=== PATIENT | female | born 1955 | race Caucasian/White ===

== ENCOUNTER → 2016-11-07 | Outpatient (CLI) | payer BC ==
[~2016-11-07] MED LIST: ASPI325T32 PO; HYDR-906 PO; SUMA50TA11 PO
--- NOTE | 2016-11-07 21:47 | HKNOTE ---
DATE OF SERVICE: The patient comes in for checkup on her right hip. The patient had a hip replacement on the right s nael 3 weeks ago. She is pleased with the results of surgery. She walks without a walking aid. She has no complaints. Note that at surgery, she was found to soft tissues around the hip that suggest ed rheumatoid arthritis. PHYSICAL EXAMINATION: Blood pressure is 100/60, temperature 98.0. The wound looks excellent. MANAGEMENT: The patient is being sent for CBC, sedimentation rate and rheumatoid factor as well as C-reactive protein, and she will be seen again in 3 weeks' time for re-evaluation. Dictated By: MARY ROSA/RNIA Conf#: [id number] DID#: [id number]
== END | disposition home or self-care (01) ==
LOC: HKI 14:38
DX: Z47.1 Aftercare following joint replacement surgery (principal); Z96.641 Presence of right artificial hip joint
CPT/HCPCS: G0463

== ENCOUNTER → 2016-11-28 | Outpatient (CLI) | payer BC ==
--- NOTE | 2016-11-28 15:24 | RADRPT ---
PROCEDURE: XR pelvis/right hip. CLINICAL INDICATION: Hip pain TECHNIQUE: AP pelvis/lateral right hip view performed. COMPARISON: 08/23/2016 FINDINGS: There is a right total hip replacement. There is no evidence of loosening of the prosthesis. There is moderate left hip osteoarthrosis. This is associated with joint space narrowing, subchondra l sclerosis, subchondral cyst formation and osteophytosis. There is normal osseous mineralization. No fractures or osseous lesions are identified. The soft tissues are unremarkable. IMPRESSION: Right total hip replacement. Moderate left hip osteoarthrosis. RPTAT: HGDB .Aditya Alberto MD, Date Time Electronically viewed and signed by .Aditya Alberto MD, on 11/28/2016 15:24 .B/
--- NOTE | 2016-11-29 00:14 | HKNOTE ---
DATE OF SERVICE: 11/28/2016 SUBJECTIVE: A 61-year-old female presents today for 6 weeks postoperative visit after right total hip replacement via anterior route on 10/17/2016. The patient discontinued cane for assisted ambulation 4 to 5 days postop. Since discharge from hospital, patient has no pain complaints. Important to note, that patient has discontinued/stopped deep vein thrombosis prophylaxis with aspirin 325 mg 2 weeks postoperative and she also states that she stopped Celebrex antinflammatory medications 2 week postop. She denies any episodes of chest pain , shortness of breath or calf pain. The patient does state that she has discomfort from the calf on the right side that radiates from the knee after she has been performing therapy at home, but states that calf pain is not constant. At rest she denies any calf pain. Denies any swelling to the right lower extremity. The patient does have complaints of mild numbness around incision site and at times, it can radiate down to the anterior mid quadriceps/ thigh region. Denies any falls. The patient is very pleased status post surgery as she states that she has had significant improvement. She does have slight limp. PHYSICAL EXAMINATION: VITAL SIGNS: Blood pressure is 99/65, temperature is 98.3 degrees, pulse is 79, respiratory rate is 12, height is 5'7", weight is 128 pounds. GENERAL: The patient is alert, oriented and in no acute distress. MUSCULOSKELETAL: Gait is abnormal as she has a slight limp. The patient does feel that the right lower extremity is longer than the left. Prior to surgery, patient had the same sensation/feeling of the right lower extremity being longer than the left. The patient is able to flex at the right hip up to 110 degrees actively and passively up to 120 degrees. The patient complains of tightness with active and passive range of motion past 110 degrees. No pain with range of motion, however. 5/5 strength on resistance to the hip flexors, extensors and abductors. Normal sensory examination to light touch. No calf pain /negative Dominique's sign on exam. Toes freely moveable. X-ray to the right hip on 11/28/2016 showing about 3 mm increased length of the right leg compared to the left. All components in regards to prosthesis appear well aligned and appear to be well attached to the bone. No signs of any lucency between metal and bone. X-rays reviewed with Dr. Sawant today. ASSESSMENT AND PLAN: The patient continues with limp but no pain due to abnormal leg length by about [address] Sawant has reviewed pelvic x-rays today showing arthritic findings to the left hip and states that patient will likely need total hip replacement to the left side and correction of unequal limb length can be corrected at that time which is expected within the next 2 to 3 years. The patient states that she is doing well with ambulation, but if abnormal gait does continue to bother her, she may consider having foot insert placed. Wound continues to heal well. Antibiotics card given. The patient may discontinue hip precautions. Patient will followup in 4 1/2 months/6 months postoperative. The patient was given our standard plastic card containing instructions for the use of prophylactic antibiotics as a guideline should infection develop anywhere in the body, there be the need for manipulation or scoping of the genitourinary tract or gastrointestinal tract, or for prophylaxis for dentistry. These instructions pertain for the rest of the patient's life. All the restrictions that the patient was taught in the hospital to prevent dislocation are now being discontinued. The patient will continue to use a crutch or a cane in the opposite hand as necessary and will discontinue the same once comfort levels allow it. Extremes of motion, such as lifting one foot onto the opposite thigh to clip toenails, were discouraged for at least another 6 weeks since there is a still a small danger of dislocation occurring. Long- term care of the hip replacement was discussed with the patient. The advice given was that stressful activities should be avoided since they decrease the life expectancy of the implant. Activities to be avoided include all types of impact sports such as running, jogging, tennis, racquetball, badminton, football , baseball, horseback riding, and others. The patient was advised that heavy lifting (more than 40 pounds) is dangerous for the implant and that weight lifting, jumping from heights, and falls can cause serious damage to the implant. The patient's attention was drawn to page 47 of the Arthritis Book. Dictated By: BELL EASON for MARY SAWANT MD, KP/RINA Conf#: [id number] DID#: [id number] [facility]
== END | disposition home or self-care (01) ==
LOC: HKI 14:31
DX: Z47.1 Aftercare following joint replacement surgery (principal); Z96.641 Presence of right artificial hip joint
CPT/HCPCS: 73502; G0463

== ENCOUNTER → 2017-04-23 | Outpatient (CLI) | payer BC ==
--- NOTE | 2017-04-23 16:33 | RADRPT ---
PROCEDURE: XR Right hip and pelvis. CLINICAL INDICATION: Right hip pain. Pelvic pain. Postop. TECHNIQUE: Two views. Frontal pelvis and lateral right hip. COMPARISON: 11/28/2016. FINDINGS: There is no fracture or dislocation. The soft tissues are normal. There is a right hip total arthroplasty which appears satisfactory. There are moderate degenerative changes of the left hip with joint space narrowing and osteophytes. There is no lytic or blastic lesion. The upper pelvis is not completely included on the image. IMPRESSION: 1. Satisfactory postoperative appearance of the right hip. 2. Moderate degenerative changes of the left hip. RPTAT: QQ .Yimi Meier MD, MD Date Time Electronically viewed and signed by .Yimi Meier MD, MD on 04/23/2017 16:33 .R/
--- NOTE | 2017-04-23 16:38 | PN ---
Date/Time of Note Date/Time of Note DATE: 04/23/17 TIME: 16:35 Outpatient Progress Note Chief Complaint 6 months status post right total hip replacement HPI 61-year-old female presents today for 6 month postoperative appointment status post right total hip replacement performed on 10/17/2016. Since patient was last seen, she denies any pain to the right hip. She does have occasional discomfort in regards to paresthesias on the anterior lateral thigh. Paresthesias may be nonspecific from numbness to tingling in any variety of paresthesias. Paresthesias are mild and gradually improving. Denies any falls or injury. Patient is very satisfied and pleased status post total hip replacement as she is back to her normal function. Review of Systems Const: No Fever, no chills, no Fatigue, normal appetite, no diaphoresis. Resp: No SOB, no wheezing, no chest pain. CV: No chest pain, no palpitaions, no CORONEL. Physical Exam Blood pressure is 98/67, temperature is 98.3, pulse is 66, respiratory rate is 12, height is 5 foot 7 inches, weight is 128 pounds General Appearance: well-developed, well-nourished, in no acute distress. Right hip: Gait is normal and nonantalgic. Well-healed surgical scar. Patient has full range of motion with flexion and extension of the right hip. Full range of motion with abduction and adduction. 5/5 strength on exam. Normal sensory examination to light touch. Imaging: X-ray of the right hip performed on 04/23/2017 showing all components appearing well aligned, attached and integrated to the bone. No signs of any lucency between metal and bone. Allergies Coded Allergies: No Known Allergies (Verified Allergy, Unknown, 10/17/16) Family Hx Patient History: Patient reports no known family medical history. Assessment/Plan * Patient has returned to normal functionality and is very pleased status post surgery. 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 * Dental prophylaxis instructions were repeated today. * Follow-up as needed Antibiotic card provided for patient. Patient made aware that dental prophylaxis will be necessary prior to any dental procedure for the remainder of their lifetime. Patient is aware that they must contact their dentist prior to any procedure to inform them of previous joint replacement with prosthesis implant so appropriate antibiotic may be prescribed to lower risk of joint infection status post surgery. Card will also serve as confirmation should patient be traveling and have to go through security such as at an airport. Medications Home Meds Active Scripts Hydrocodone/Acetaminophen ([place] 5-325 Tablet) 1 Each Tablet, 1 EACH PO Q6 Y for PAIN LEVEL 1-5, #60 TAB Prov:ANTONIA REED MD 10/19/16 Aspirin (Aspir-Shea) 325 Mg Tablet.dr, 325 MG PO BID for 60 Days, #120 Prov:ANTONIA REED MD 10/19/16 Reported Medications Sumatriptan Succinate* (Imitrex*) 50 Mg Tablet, 50 MG PO BID Y for MIGRAINE HEADACHE, TAB May repeat after 2 hours if needed; MAX 200 mg/24 hours 10/17/16 BELL KAUR PA-C Apr 23, 2017 16:38
== END | disposition home or self-care (01) ==
LOC: HKI 14:52
DX: Z47.1 Aftercare following joint replacement surgery (principal); Z96.641 Presence of right artificial hip joint; R20.9 Unspecified disturbances of skin sensation; Z79.82 Long term (current) use of aspirin
CPT/HCPCS: 73502; G0463

== ENCOUNTER → 2018-12-18 | Outpatient (CLI) | payer BC ==
[~2018-12-18] MED LIST changes: +HYDR-4011 PO; -HYDR-906 PO; -SUMA50TA11 PO; +SUMA50TA2 PO
--- NOTE | 2018-12-18 17:25 | CONS ---
Assessment/Plan Assessment/Plan Hospital Course (Demo Recall) 63-year-old female 3-1/2 years status post right total hip arthroplasty through anterior approach. Overall she is doing very well. She has persistent paresthesias from the time of surgery. These are unlikely to improve at this time. Patient states that symptoms are not severe enough to start a medication such as gabapentin. Her new symptoms are more consistent with IT band tendinitis. There are no concerns for infection or loosening at this time. Plan: Meloxicam and Physical therapy for IT band tendinitis f/u 3 months Consultation Date/Type/Reason Admit Date/Time Date of Consultation: Dec 18, 2018 Reason for Consultation Right total hip arthroplasty pain Date/Time of Note DATE: 12/18/18 TIME: 17:19 Hx of Present Illness This is a 63-year-old female who presents to clinic today for right hip pain. She is status post a right anterior total hip arthroplasty by Dr. Lopez in 2016. Since the time of surgery she has had persistent paresthesias along the anterolateral aspect of the leg. She has come to live with the symptoms. However over the last couple months that she is noticed that there is been slight change in her symptoms. She now notes some more dull ache and the pain on the lateral aspect of her thigh going more distal. Denies any numbness and tingling below the knee. She denies any fevers and chills. Denies any start up pain. Her pain is rated 3/10. Standing for long periods of time increase her symptoms. She is otherwise happy with her hip replacement. Patient denies fever, chills, shortness of breath, chest pain, nausea/vomiting, constipation, diarrhea Past Medical History Hepatitis Ctreated and cured Breast cancer 2013in remission Osteoarthritis Headaches Home Meds Active Scripts Hydrocodone/Acetaminophen ([place] 5-325 Tablet) 1 Each Tablet, 1 EACH PO Q6 PRN for PAIN LEVEL 1-5, #60 TAB Prov:ANTONIA REED MD 10/19/16 Aspirin (Aspir-Shea) 325 Mg Tablet.dr, 325 MG PO BID for 60 Days, #120 Prov:ANTONIA REED MD 10/19/16 Reported Medications Sumatriptan Succinate* (Imitrex*) 50 Mg Tablet, 50 MG PO BID PRN for MIGRAINE HEADACHE, TAB May repeat after 2 hours if needed; MAX 200 mg/24 hours 10/17/16 Allergies: Coded Allergies: No Known Allergies (Verified Allergy, Unknown, 10/17/16) Past Surgical History Hysterectomy 2010 Lumpectomy 2013 Right JAMIL 2016 Family History Significant Family History: no pertinent family hx Social History Alcohol Use: occasionally (1-2-week) Smoking Status: Never smoker Drug Use: none Exam/Review of Systems Exam Vitals Weight: 128 pounds Height: 5 feet 7 inches Temperature: 97.9 Heart Rate: 69 Blood Pressure: 100/58 Respiratory Rate: 12 Exam General: Alert, oriented. Vital signs: Noted on the chart. Heart: Regular rate and rhythm. Lungs: No respiratory distress. No accessory muscle use. Musculoskeletal: Well developed female in no apparent distress. Gait demonstrates a nonantalgic g ait. Standing, the pelvis is level and supine there is no true leg length discrepancy. There is tenderness over trochanteric bursa and more significant tenderness over the IT band. Positive Obers Test Range of motion: Flexion: 130 Extension: 0 Internal rotation: 20 External rotation: 45 Abduction: 60 Adduction: 10 Sitting there is no pelvic obliquity. Minimal to no pain at the extremes of motion of the affected hip. Skin was intact throughout both lower extremities. Sensation was decreased to light touch over the anterolateral thigh. Sensation intact to light touch in a sural, saphenous, deep peroneal, superficial peron eal, medial and lateral plantar nerve distribution. Neurovascular exam showed 5/5 strength in the abductors, quads, EHL/tibialis anterior/gastroc. Normal and symmetrical pulses were palpated in both the dorsalis pedis and posterior tibial arteries. There is no sign of venous stasis. Imaging Imaging Xrays obtained in clinic today and personally reviewed by myself: AP pelvis and AP/Lat of the right hip demonstrate hip s/p JAMIL with hip reduced. Components in good position and alignment. No signs of wear, osteolysis, loosening, component failure, or fracture. No acute complications. FRANCISCO HERNANDEZ MD Dec 18, 2018 17:25
--- NOTE | 2018-12-20 06:37 | RADRPT ---
PROCEDURE: Pelvis and right hip study CLINICAL INDICATION: Pain TECHNIQUE: Weightbearing AP pelvis and AP and frog lateral views of the right hip were performed. COMPARISON: Right hip study 11/28/2016 FINDINGS: There is a total right hip prosthesis in place without dislocation or loosening. No acute fracture. N o focal bony blastic or lytic lesion. Mild degenerate joint disease left hip. Soft tissues are unrema rkable. IMPRESSION: 1. Unremarkable right hip prosthesis. 2. Mild degenerate joint disease left hip. RPTAT:AAJJ Physician Seth Date Time Electronically viewed and signed by Cortney Elena Physician on 12/20/2018 06:37 BM/
== END | disposition home or self-care (01) ==
LOC: HKI 16:14
PROVIDERS: ATTEND Orthopaedic Surgery Adult Reconstructive Orthopaedic Surgery
DX: M25.551 Pain in right hip (principal); B19.20 Unspecified viral hepatitis C without hepatic coma; Z85.3 Personal history of malignant neoplasm of breast
CPT/HCPCS: 73502; G0463